=== PATIENT | male | born 1965 | race Caucasian/White ===

== ENCOUNTER → 2016-10-10 07:22 | Outpatient (CLI) | payer BC | END | disposition home or self-care (01) | LOC: D.US 07:22 | DX: R11.2 Nausea with vomiting, unspecified (principal) ==

== ENCOUNTER 2016-10-14 22:26 | Emergency (ER) | payer BC ==
[2016-10-14 23:18] LABS: BASOPHILS 0.2 % (0.0-2.0); HEMATOCRIT 45.1 % (42.0-54.0); HEMOGLOBIN 15.1 g/dL (13.5-17.5); IMMATURE GRANULOCYTES 0.2 % (0-5); LYMPHOCYTES 43.1 % (15-50); MCH 32.3 pg (26.0-34.0); MCHC 33.5 g/dL (31.0-37.0); MCV 96.4 fL (80.0-100.0); MONOCYTES 8.5 % (2-11); PLATELET COUNT 220 10x3/uL (130-400); RBC 4.68 10x6/uL (4.20-6.10); RDW 12.7 % (11.5-14.5); WBC 6.6 10x3/uL (4.8-10.8)
[2016-10-14 23:37] LABS: APTT 27.7 SECONDS (22.8-39.4); INR 0.95 (0.85-1.17); PROTIME 12.5 SECONDS (11.6-15.0)
[2016-10-14 23:45] LABS: ALKALINE PHOSPHATASE 73 U/L (46-116); ALT (SGPT) 22 U/L (10-68); BILIRUBIN - TOTAL 0.33 mg/dL (0.2-1.3); CALC OSMOLALITY 281 mosm/kg (275-300); CALCIUM 9.2 mg/dL (8.5-10.1); CARBON DIOXIDE 29.6 mmol/L (21.0-32.0); CHLORIDE - SERUM 105 mmol/L (98-107); GLUCOSE 117 mg/dL (74-106); POTASSIUM - SERUM 3.7 mmol/L (3.5-5.1); SODIUM 141 mmol/L (136-145); UREA NITROGEN 12 mg/dL (7-18); eGFR NON AFRICAN AMERICAN 83 mL/min (90-120)
== END 2016-10-15 01:35 | disposition home or self-care (01) ==
LOC: D.ER 22:26
PROVIDERS: Emergency Medicine
DX: K29.01 Acute gastritis with bleeding (principal); K59.00 Constipation, unspecified

== ENCOUNTER → 2017-01-09 08:27 | Outpatient (CLI) | payer BC | END | disposition home or self-care (01) | LOC: D.NM 08:27 | DX: K21.0 Gastro-esophageal reflux disease with esophagitis (principal); R11.2 Nausea with vomiting, unspecified; K62.1 Rectal polyp; R06.09 Other forms of dyspnea; Z83.71 Family history of colonic polyps ==

== ENCOUNTER 2017-01-24 05:30 | Day surgery (SDC) | payer BC ==
[~2017-01-24] VITALS: Ht 180.3 cm; Wt 86.2 kg
[~2017-01-24 05:30] MED LIST: AMBIEN10 MG PO; CELEXA20 MG PO; DOXYCYCLINE HY100 M2 PO; PERCOCET 5-3251 TAB PO; PRAVACHOL40 MG PO; PROTONIX40 MG PO; ZOFRAN ODT4 MG/UDTAB PO
[2017-01-24 06:12] VITALS: BP 131/81; Ht 180.3 cm; Wt 86.2 kg
[2017-01-24] MEDS ORDERED: PERCOCET 5-3251 TAB PO (08:51)
--- NOTE | 2017-01-24 10:21 | OP ---
PATIENT NAME: AJ YEPEZ MEDICAL RECORD: [id number] :61 LOCATION:[facility] ADMISSION DATE: SURGEON: SAVI JOY MD DATE OF OPERATION: 01/24/2017 SURGEON: Savi Joy MD PREOPERATIVE DIAGNOSIS: Biliary dyskinesia. POSTOPERATIVE DIAGNOSIS: Biliary dyskinesia. PROCEDURE PERFORMED: Laparoscopic cholecystectomy. ANESTHESIA: General. COMPLICATIONS: None. SPECIMENS: Gallbladder. Case was clean contaminated. OPERATIVE COURSE: After consent was obtained, the patient was taken to the operating room and placed in the supine position on the operating table. Next, general anesthesia was given via endotracheal intubation after a timeout was taken to confirm the correct patient and procedure. The abdomen was prepped and draped in typical sterile fashion. Local anesthetic was injected just above the umbilicus. A stab incision was made with an 11-blade scalpel. Using a 5-mm bladeless optical trocar, the abdomen was entered under direct laparoscopic vision. Adequate pneumoperitoneum was achieved. The abdominal cavity was inspected. No evidence of bowel injury. No evidence of bleeding. The patient was then placed in the steep reverse Trendelenburg position. All remaining trocars were placed after the administration of local anesthetic under direct laparoscopic vision, two 5-mm trocars in the right upper quadrant, 11-mm trocar in the subxiphoid position. The fundus of the gallbladder was then grasped and retracted cephalad. The infundibulum was grasped and retracted laterally. The peritoneum was incised using electrocautery. Blunt dissection was performed until the critical view was obtained. The cystic duct lateral, cystic artery medial, liver and posterior window. Two clips were placed in the proximal cystic artery, it was transected with laparoscopic Metzenbaum scissors. Three clips were placed in the proximal cystic duct, 1 clip distal. The duct was then transected with laparoscopic Metzenbaum scissors. The remaining portion of the gallbladder was then dissected off the liver bed using electrocautery. It was grasped with the tenaculum, removed through the 11-mm trocar and sent for permanent pathology. Next, the operative field was copiously irrigated and suctioned. Careful attention was paid to hemostasis, which was obtained in the liver bed using electrocautery. The abdominal cavity was then irrigated and suctioned. The liver bed was inspected. There was no evidence of bile leak. There were [address] in the duct, [address] in the artery. The abdominal cavity was inspected. No evidence of bowel injury. No evidence of bleeding, no evidence of bile leak. At this time, all remaining instruments were removed. The abdomen was desufflated. Trocars were removed. Skin was closed with 4-0 Monocryl, Mastisol and Steri-Strips. At the end of the case, all needle and instrument counts were correct. No complications occurred. The patient was extubated and transferred to the PACU in stable condition. OPERATIVE REPORT [id number] AJ YEPEZ TRANSINT:[id number] Voice Confirmation ID: [id number] DOCUMENT ID: [id number] SAVI JOY MD at 1021 CC: [id number] DICTATION DATE: 01/24/17 0855 CORPORATE COMMUNICATIONS ASSOCIATE: 01/24/17 0941 [id number] [place] [address]
== END 2017-01-24 10:32 | disposition home or self-care (01) ==
LOC: D.OPS 05:30 → D.PAN 08:00 → D.OPS 08:00
DX: K81.1 Chronic cholecystitis (principal)